=== PATIENT | female | born 1985 | race African-American/Black ===

== ENCOUNTER 2016-08-24 12:41 | Emergency (ER) | payer OTHER ==
--- NOTE | ~2016-08-24 | CR63 ---
[facility] A Service of [facility] RADIOLOGY TEXT RESULTS PATIENT: MALATHI RILEY LOCATION: CFTX : 81 UNIT #: [id number] AGE: [address]: Emma Bond APRN SEX: F ORDER DR: [id number] [facility] [address] [place], [place] [address] [id number] E MR#: [id number] Acc #: [id number] NAME: MALATHI RILEY : 1985 SEX: F STUDY DATE/TIME: 08/24/2016 13:25 UNIT: [facility] ROOM: STUDY DESCRIPTION: CR Chest 2 View Attending Physician: Emma Bond A.P.R.N. Ordering Physician: Ed Doctor [id number] [facility] MED[facility] REPORT This report is preliminary unless electronic signature is present EXAM Chest x-ray, 08/24/2016 HISTORY A 31-year-old female in the ED complaining of 1-day history of left side chest/chest wall pain. Mild chest congestion. TECHNIQUE PA and lateral upright chest series. FINDINGS The examination is negative. Heart size and pulmonary vascularity are normal. The lungs are expanded and clear. No visible pulmonary infiltrate or pleural effusion. IMPRESSION Negative chest. Dictated by... Jose Woodruff M.D. THIS IS AN ELECTRONICALLY VERIFIED REPORT Jose Woodruff M.D. at 08/25/2016 12:51 PM KALEY/karina TD: 08/24/2016 23:15 JOB #: [id number] MEDICAL IMAGING REPORT Page 1 of 1 COPY
== END 2016-08-24 14:00 | disposition home or self-care (01) ==
LOC: CFTX 12:41 → CED 12:41 → CFTX 13:59
DX: R07.81 Pleurodynia (principal); F17.210 Nicotine dependence, cigarettes, uncomplicated; X50.9XXA Other and unspecified overexertion or strenuous movements or postures, initial encounter; Y92.009 Unspecified place in unspecified non-institutional (private) residence as the place of occurrence of the external cause
CPT/HCPCS: 71020; 99284